=== PATIENT | female | born 1945 | race Caucasian/White ===

== ENCOUNTER 2024-10-16 15:01 | Inpatient (IN) | payer MEDICARE, OTHER ==
[~2024-10-16] VITALS: Ht 162.6 cm; Wt 93.0 kg
[2024-10-16] MEDS ORDERED: LEVO88TA4 PO (16:05)
[2024-10-16] MEDS ORDERED: ONDA-104 PO (16:05)
[2024-10-16] MEDS ORDERED: ESCI-8 PO (16:05)
[2024-10-16] MEDS ORDERED: OLAN10TA74 PO (16:05)
[2024-10-16] MEDS ORDERED: ASCO100061 PO (16:05)
[2024-10-16] MEDS ORDERED: LOPE-232 PO (16:05)
[2024-10-16] MEDS ORDERED: CHOL500013 PO (16:05)
[2024-10-16] MEDS ORDERED: VIBE75TA PO (16:05)
[2024-10-16] MEDS ORDERED: THIA100T80 PO (16:05)
[2024-10-16] MEDS ORDERED: OLAN5TAB52 PO (16:05)
[2024-10-16] MEDS ORDERED: FOLI-130 PO (16:05)
[2024-10-16] MEDS ORDERED: ATOR20TA PO (16:05)
[2024-10-16 17:09] LABS: BASOPHILS % (AUTO) 0.4 % (0.0-2.0); HEMATOCRIT 37.6 % (36-46); HEMOGLOBIN 12.2 g/dL (12.0-16.0); LYMPHOCYTES # (AUTO) 1.9 K/uL (1.0-4.8); LYMPHOCYTES % (AUTO) 26.5 % (22.0-44.0); MEAN CORPUSCULAR HEMOGLOBIN 29.4 pg (26.0-34.0); MEAN CORPUSCULAR HGB CONC 32.6 G/dL (31.0-37.0); MEAN CORPUSCULAR VOLUME 90 fL (80-100); MONOCYTES # (AUTO) 0.7 K/uL (0.1-1.0); MONOCYTES % (AUTO) 9.1 % (2.0-9.0); NEUTROPHILS # (AUTO) 4.5 K/uL (1.8-7.7); PLATELET COUNT (AUTO) 218 K/uL (150-450); RED BLOOD CELL COUNT(AUTO) 4.16 MIL/uL (4.00-5.20); RED CELL DISTRIBUTION WIDTH 14.8 % (11.5-14.5); WHITE BLOOD COUNT (AUTO) 7.3 K/uL (4.5-11.0)
[2024-10-16 17:26] LABS: CHLORIDE 106 mmol/L (98-107); POTASSIUM 4.2 mmol/L (3.5-5.1); SODIUM SERUM 141 mmol/L (136-145)
[2024-10-16 17:29] LABS: LACTIC ACID 0.7 mmol/L (0.4-2.0)
[2024-10-16 17:33] LABS: ANION GAP 8 mmol/L (8-16); CARBON DIOXIDE 27 mmol/L (22-29); CREATININE 1.05 mg/dL (0.60-1.30); GLOMERULAR FILTR. RATE CALC 50 mL/min (>60); GLUCOSE,RANDOM 103 mg/dL (70-110); UREA NITROGEN, BLOOD 19 mg/dL (7-18)
[2024-10-16 17:34] LABS: B-TYPE NATRIURETIC PEPTIDE 28 pg/mL (0-100)
[2024-10-16 17:41] LABS: TROPONIN I-HIGH SENSITIVITY 8 ng/L (<51)
[2024-10-16 19:08] LABS: APPEARANCE,URINE HAZY (CLEAR); BILIRUBIN,URINE NEGATIVE (NEGATIVE); COLOR,URINE YELLOW (YELLOW); GLUCOSE, URINE (UA) NEGATIVE (NEGATIVE); KETONES,URINE NEGATIVE (NEGATIVE); LEUKOCYTE ESTERASE ,URINE LARGE (NEGATIVE); NITRATE,URINE NEGATIVE (NEGATIVE); OCCULT BLOOD,URINE NEGATIVE (NEGATIVE); PH,URINE 5.5 (5.0-8.0); PROTEIN,URINE TRACE mg/dL (NEGATIVE); SPECIFIC GRAVITIY, URINE 1.019 (1.003-1.030); UROBILINOGEN,URINE <=1.0 mg/dL (<=1.0)
[2024-10-16 19:17] LABS: BACTERIA,URINE Many /HPF (None Seen); RBC,URINE 0-2 /HPF (0-2); SQUAMOUS EPITHELIAL CELL,UR Many /LPF (None Seen); WBC,URINE 26-50 /HPF (0-5)
[2024-10-16] MEDS: CefTRIAXone SODIUM 1 GM/VIAL IM ONE (19:42)
[2024-10-16] MEDS: LIDOCAINE/PF 1% 2 ML VIAL IM ONE (19:42)
[2024-10-16] MEDS: SODIUM CHLORIDE 0.9% 1,000 ML IV ONE (22:29)
[2024-10-16] MEDS ORDERED: ONDANSETRON HCL 4 MG/2 ML VIAL IVP PRN (22:45)
[2024-10-16] MEDS ORDERED: BISACODYL 10 MG RECTAL RECTAL SUPPOSITORY PR PRN (22:45)
[2024-10-16] MEDS ORDERED: MAGNESIUM HYDROXIDE SUSPENSION 30 ML UDCUP PO PRN (22:45)
[2024-10-16] MEDS ORDERED: ALBUTEROL SULFATE 2.5 MG/0.5 ML NEB SOLUTION NEB PRN (22:45)
[2024-10-16] MEDS ORDERED: ACETAMINOPHEN 325 MG TABLET PO PRN (22:45)
[2024-10-16] MEDS ORDERED: LOPERAMIDE HCL 2 MG CAPSULE PO PRN (22:45)
[2024-10-16] MEDS ORDERED: IPRATROPIUM BROMIDE 0.5 MG/2.5 ML NEB SOLUTION NEB PRN (22:45)
[2024-10-16] MEDS ORDERED: ONDANSETRON 4 MG TABLET PO PRN (22:45)
[2024-10-16] MEDS ORDERED: MORPHINE SULFATE 2 MG/ML SYRINGE IVP PRN (22:45)
[2024-10-16] MEDS ORDERED: HYDROCODONE/ACETAMINOPHEN 5-325 MG TABLET PO PRN (22:45)
[2024-10-17] MEDS: HEPARIN SODIUM,PORCINE 5,000 UNITS/ML VIAL SQ SCH
[2024-10-17 01:31] VITALS: BP 138/69; PULSE 70; RESP 18; TEMP 98; O2SAT 95
[2024-10-17 06:15] VITALS: BP 131/71; PULSE 72; RESP 18; TEMP 97.8; O2SAT 96
[2024-10-17] MEDS: LEVOTHYROXINE SODIUM 88 MCG TABLET PO SCH (06:30)
[2024-10-17 07:42] VITALS: BP 137/98; PULSE 78; RESP 18; TEMP 98.1; O2SAT 95
[2024-10-17] MEDS: FOLIC ACID 1 MG TABLET PO SCH (08:36)
[2024-10-17] MEDS: ESCITALOPRAM OXALATE 10 MG TABLET PO SCH (08:36)
[2024-10-17] MEDS: PANTOPRAZOLE SODIUM 40 MG DR TABLET PO SCH (08:36)
[2024-10-17] MEDS ORDERED: MISC MED-CONVERTED FROM AMBULATORY (Vibegron (Gemtesa) 75 MG) PO SCH (09:00)
[2024-10-17] MEDS: THIAMINE 100 MG TABLET PO SCH (10:16)
[2024-10-17] MEDS: CHOLECALCIFEROL (VIT D3) 5,000 [125 MCG] UNITS CAPSULE PO SCH (10:16)
[2024-10-17] MEDS: OLANZapine 5 MG TABLET PO SCH (10:16)
[2024-10-17] MEDS: ASCORBIC ACID 500 MG TABLET PO SCH (10:16)
[2024-10-17 15:10] VITALS: BP 112/57; PULSE 77; RESP 18; TEMP 98.1; O2SAT 95
[2024-10-17] MEDS: CefTRIAXone 1 GM/DEXTROSE 50 ML IV SCH (18:14)
[2024-10-17 20:09] VITALS: BP 128/66; PULSE 94; RESP 20; TEMP 97.7; O2SAT 94
[2024-10-17] MEDS: OLANZapine 10 MG TABLET PO SCH (21:12)
[2024-10-17] MEDS: ATORVASTATIN CALCIUM 20 MG TABLET PO SCH (21:12)
[2024-10-17] MEDS: ZOLPIDEM TARTRATE 5 MG TABLET PO PRN (21:12)
[2024-10-18 05:36] VITALS: BP 145/61; PULSE 69; RESP 20; TEMP 98; O2SAT 96
[2024-10-18 16:21] VITALS: PULSE 70; RESP 18; TEMP 98; O2SAT 95
[2024-10-18 19:55] VITALS: BP 95/59; PULSE 72; RESP 18; TEMP 98.3; O2SAT 94
[2024-10-19 04:32] VITALS: BP 127/70; PULSE 69; RESP 18; TEMP 97.5; O2SAT 93
[2024-10-19 08:18] VITALS: BP 129/63; PULSE 70; RESP 18; TEMP 96; O2SAT 95
[2024-10-19] MEDS: PIPERACILLIN/TAZO 3.375 GM/D5W 50 ML IV SCH (13:14)
[2024-10-19 13:24] VITALS: BP 168/89; PULSE 63; RESP 18; TEMP 97.9; O2SAT 99
[2024-10-19] MEDS ORDERED: AMOX-457 PO ×2 (14:19→14:20)
[2024-10-19 15:36] VITALS: BP 91/51; PULSE 75; RESP 18; TEMP 98.2; O2SAT 93
[2024-10-19 16:25] VITALS: BP 104/62; PULSE 71; RESP 18; TEMP 98.5; O2SAT 95
[2024-10-19 19:42] VITALS: BP 100/55; PULSE 77; RESP 20; TEMP 98; O2SAT 94
[2024-10-20 06:17] VITALS: BP 138/81; PULSE 84; RESP 19; TEMP 97; O2SAT 98
[2024-10-20 08:31] VITALS: BP 119/59; PULSE 74; RESP 18; TEMP 98; O2SAT 97
== END 2024-10-20 10:15 | DRG 177 ==
LOC: EMS 15:01 → EDH 22:42 → 4E 10-17 01:04
PROVIDERS: ADMIT Hospitalist; ATTEND Hospitalist
DX: J69.0 Pneumonitis due to inhalation of food and vomit (principal); G93.41 Metabolic encephalopathy; N39.0 Urinary tract infection, site not specified; I10 Essential (primary) hypertension; E03.9 Hypothyroidism, unspecified; E78.5 Hyperlipidemia, unspecified; G25.2 Other specified forms of tremor; G20.C Parkinsonism, unspecified
CPT/HCPCS: 70450; 71045; 80048; 81001; 83605; 83880; 84484; 85025; 87081; 87086; 87481; 93005; 97116; 97163; 97167; 97530; 97535; 99285; G0378; J0696; J1644; J2543; J3490; J7030; 36415-L1; 36415-TC